=== PATIENT | male | born 1990 | race Caucasian/White ===

== ENCOUNTER 2016-09-11 10:05 | Emergency (ER) | payer MEDICAID, OTHER, SELFPAY ==
[~2016-09-11] VITALS: Ht 175.3 cm; Wt 65.0 kg
[2016-09-11 10:07] VITALS: BP 128/86
== END 2016-09-11 10:43 | disposition home or self-care (01) ==
LOC: ED 10:39
DX: L03.011 Cellulitis of right finger (principal)
CPT/HCPCS: 10160